=== PATIENT | female | born 1975 | race African-American/Black ===

== ENCOUNTER 2018-01-26 13:09 | Emergency (ER) | payer OTHER ==
[2018-01-26] MEDS ORDERED: NORMAL SALINE 1000 ML 1,000 ML IV ONE ×2 (13:32→14:40)
[2018-01-26] MEDS ORDERED: ONDANSETRON HCL INJ/PF 4 MG/2 ML SDV IV ONE ×2 (13:32→17:37)
[2018-01-26] MEDS ORDERED: KETOROLAC TROMETHAMINE INJ/PF 30 MG/1 ML SDV IV ONE (14:40)
--- NOTE | 2018-01-26 14:54 | ER Document Report ---
ED GI/ - General Chief Complaint: Diarrhea Stated Complaint: VOMITTING Time Seen by Provider: 01/26/18 13:31 Mode of Arrival: Ambulatory Information source: Patient - HPI Patient complains to provider of: Abdominal pain, Diarrhea, Vomiting Onset: Other - months Notes: 01/26/18 14:49 Patient is here with complaints of diarrhea for the last 3 months. She states that every time she eats, she immediately has diarrhea. Over the last few weeks she has also had associated nausea and vomiting. She complains of some generalized abdominal pain. She denies dysuria or hematuria. No vaginal bleeding or vaginal discharge. Prior abdominal surgeries include and laparoscopy. She denies any changes in her diet or any new medications. She denies any recent travel outside the [place]. She denies any known sick contacts. She has not been on antibiotics recently. She denies any blood in her stool. She denies starting any new medications recently. She denies any chest pain or shortness of breath. No other complaints at this time. She states that she saw her primary care doctor and was started on reflux medication. - Related Data Allergies/Adverse Reactions: tuberculin,PPD,multi-puncture Allergy (Verified 01/26/18 13:11) Past Medical History - Social History Smoking Status: Never Smoker Family History: Reviewed & Not Pertinent Patient has suicidal ideation: No Patient has homicidal ideation: No - Past Medical History Cardiac Medical History: Reports: Hx Hypercholesterolemia, Hx Hypertension Renal/ Medical History: Denies: Hx Peritoneal Dialysis Past Surgical History: Reports: Hx Section Review of Systems - Review of Systems -: Yes All other systems reviewed and negative Physical Exam - Vital signs Vitals: Temp Pulse Resp BP Pulse Ox 99.1 F 130 H 14 141/94 H 96 01/26/18 13:13 01/26/18 13:13 01/26/18 13:13 01/26/18 13:13 01/26/18 13:13 - Notes Notes: GENERAL: alert, cooperative, nontoxic, no distress. HEAD: normocephalic, atraumatic EYES: conjunctiva pink without discharge, no external redness or swelling. EARS: no external swelling, no external redness NOSE: atraumatic, no external swelling MOUTH/THROAT: mucous membranes moist and pink, posterior pharynx without erythema, swelling, exudate. No trismus or drooling. NECK: soft, supple, full range of motion, no meningismus. CHEST: no distress, lungs clear and equal throughout. No wheezing, rales, rhonchi. CARDIAC: Mild tachycardia, regular rhythm, no murmur, normal capillary refill, normal pulses. No peripheral edema noted. ABDOMEN: Soft, mild generalized tenderness to palpation. No rebound tenderness or guarding. No mass. Obese abdomen. BACK: full range of motion, no CVA tenderness. EXTREMITIES: full range of motion of all extremities. No redness, no swelling. NEURO: alert and oriented x 3, no focal deficits, full range of motion of all extremities. PYSCH: appropriate mood, affect. Patient is cooperative. SKIN: pink, warm, dry, no rash. Course - Re-evaluation Re-evalutation: 01/26/18 18:12 Patient is nontoxic appearing with stable vitals. She is here with abdominal pain, nausea, vomiting. Diarrhea has been going on for last several months. She has had nausea vomiting for the last few weeks. On exam she has some mild generalized tenderness. Lab work shows an elevated blood glucose of 360 with an elevated lipase. Patient states that she is feeling significantly better after Toradol and Zofran. She was given IV fluids. She was initially tachycardic, this has resolved after her IV fluid boluses. EKG shows no acute findings. CT the abdomen and pelvis with IV contrast shows fatty infiltration of liver with no other significant findings. Patient has been able to tolerate clear fluids orally here in the emergency department. She tells me that she is feeling significant better. I offered admission to the hospital, she declined at this time. I believe this is reasonable as she is resting comfortably and is tolerating oral fluids. She will be discharged home with a prescription for Zofran and Ultram. Due to her chronic diarrhea, had ordered stool cultures here in the emergency department, she was unable to obtain a sample. I will refer her to GI for her chronic abdominal complaints. She is instructed to eat/ drink clear liquids for the next few days and slowly progress her diet. Follow- up with her primary care doctor at the next available appointment due to her elevated blood sugar. This may be secondary to her pancreatitis. Follow-up sooner for worsening pain, high fever, persistent vomiting, blood in her vomit or stool, or for any further concerns. The patient's emergency department workup and current diagnosis were explained to the patient and or family. Follow-up instructions were provided. Medications if prescribed were discussed. Instructions for when to return to the emergency department including specific worrisome symptoms were discussed with the patient and/or family. The patient is noted to have elevated blood pressure during today's emergency department visit. The patient was informed of this finding. The patient was instructed that this may be related to pre-hypertension and requires further evaluation with a primary care provider. The patient has no hypertensive symptoms at this time. - Vital Signs Vital signs: Temp Pulse Resp BP Pulse Ox 99.1 F 130 H 14 141/94 H 96 01/26/18 13:13 01/26/18 13:13 01/26/18 13:13 01/26/18 13:13 01/26/18 13:13 - Laboratory Result Diagrams: 01/26/18 15:21 01/26/18 15:21 Laboratory results interpreted by me: 01/26/18 01/26/18 01/26/18 15:21 15:21 15:21 RDW 14.4 H Sodium 135.2 L Potassium 3.2 L Chloride 97 L Glucose 368 H Albumin 3.2 L Lipase 1926.4 H Urine Glucose (UA) Urine Blood Urine Urobilinogen 01/26/18 15:35 RDW Sodium Potassium Chloride Glucose Albumin Lipase Urine Glucose (UA) >=500 H Urine Blood LARGE H Urine Urobilinogen 2.0 H - Diagnostic Test Radiology reviewed: Image reviewed, Reports reviewed - Fatty infiltration of the liver on CT of the abdomen and pelvis with IV contrast. - EKG Interpretation by [facility] EKG shows normal: Sinus rhythm, Maple, Intervals, QRS Complexes, ST-T Waves Rate: Normal Rhythm: NSR Discharge - Discharge Clinical Impression: Hyperglycemia, Chronic diarrhea Abdominal pain Qualifiers: Abdominal location: generalized Qualified Code(s): R10.84 - Generalized abdominal pain Pancreatitis Qualifiers: Chronicity: acute Pancreatitis type: unspecified pancreatitis type Acute pancreatitis complication: no infection or necrosis Qualified Code(s): K85.90 - Acute pancreatitis without necrosis or infection, unspecified Condition: Stable Disposition: HOME, SELF-CARE Instructions: Abdominal Pain ([facility]), Diarrhea, Nonspecific ([facility]), Pancreatitis ( [facility]), Hyperglycemia ([facility]) Additional Instructions: Take medications as prescribed. Follow-up with your family doctor at the next available appointment regarding your elevated blood sugar as well as your pancreatitis. Eat and drink clear liquids for the next few days and slowly progress her diet. Follow-up with GI at the next available appointment. Follow -up sooner or return for increasing pain, high fever, persistent vomiting, blood in her vomit or stool, high fevers, or for any further concerns. Your blood pressure was elevated during today's visit. Have this rechecked with your doctor. The medication you were prescribed today may cause drowsiness. Do not drive or operate heavy machinery while taking this medication. Prescriptions: Tramadol HCl [Ultram 50 mg Tablet] 50 mg PO Q6HP PRN #12 tablet PRN Reason: Ondansetron HCl [Zofran 4 mg Tablet] 1 - 2 tab PO Q4H PRN #10 tablet PRN Reason: Forms: Elevated Blood Pressure, Smoking Cessation Education, Return to Work Referrals: [facility] [Provider Group] - Follow up as needed KAVITA MCKINNON MD [ACTIVE STAFF] - Follow up as needed
[2018-01-26 15:34] LABS: ABSOLUTE EOSINOPHILS # (AUTO) 0.1 10^3/uL (0.0-0.6); ABSOLUTE LYMPHOCYTES (AUTO) 2.9 10^3/uL (0.5-4.7); ABSOLUTE MONOCYTES (AUTO) 0.4 10^3/uL (0.1-1.4); ABSOLUTE NEUT (AUTO) 5.5 10^3/uL (1.7-8.2); BASOPHILS % (AUTO) 0.5 % (0-2); EOSINOPHILS % (AUTO) 0.6 % (0-6); HEMOGLOBIN 12.1 g/dL (12.0-15.5); LYMPHOCYTES % (AUTO) 32.3 % (13-45); MEAN CORPUSCULAR HEMOGLOBIN 27.4 pg (27.0-33.4); MEAN CORPUSCULAR HGB CONC 33.6 g/dL (32.0-36.0); MEAN CORPUSCULAR VOLUME 82 fl (80-97); MONOCYTES % (AUTO) 4.9 % (3-13); PLATELET COUNT 217 10^3/uL (150-450); RED BLOOD COUNT 4.41 10^6/uL (3.72-5.28); RED CELL DISTRIBUTION WIDTH 14.4 % (11.5-14.0); SEGMENTED NEUTROPHILS % (AUTO) 61.7 % (42-78); TOTAL CELLS COUNTED % (AUTO) 100 %; WHITE BLOOD COUNT 8.9 10^3/uL (4.0-10.5)
[2018-01-26 15:45] LABS: ALANINE AMINOTRANSFERASE 34 U/L (9-52); ALBUMIN 3.2 g/dL (3.5-5.0); ALKALINE PHOSPHATASE 63 U/L (38-126); ANION GAP 9 (5-19); ASPARTATE AMINO TRANSFERASE 27 U/L (14-36); BILIRUBIN,DIRECT 0.4 mg/dL (0.0-0.4); BILIRUBIN,TOTAL 0.4 mg/dL (0.2-1.3); BLOOD UREA NITROGEN 16 mg/dL (7-20); CALCIUM 9.4 mg/dL (8.4-10.2); CARBON DIOXIDE 29 mmol/L (22-30); CHLORIDE 97 mmol/L (98-107); GLUCOSE 368 mg/dL (75-110); POTASSIUM 3.2 mmol/L (3.6-5.0); SODIUM 135.2 mmol/L (137-145); TOTAL PROTEIN 6.3 g/dL (6.3-8.2)
--- NOTE | 2018-01-26 16:03 | EKG REPORT ---
SEVERITY:- BORDERLINE ECG - SINUS RHYTHM LVH BY VOLTAGE : Confirmed by: James Benitez 26-Jan-2018 16:02:42
[2018-01-26 16:14] LABS: APPEARANCE,URINE CLEAR; BILIRUBIN,URINE NEGATIVE (NEGATIVE); COLOR,URINE STRAW; GLUCOSE, URINE >=500 mg/dL (NEGATIVE); KETONES,URINE NEGATIVE (NEGATIVE); LEUKOCYTE ESTERASE,URINE NEGATIVE (NEGATIVE); NITRITE,URINE NEGATIVE (NEGATIVE); PROTEIN,URINE NEGATIVE (NEGATIVE); URINE SPECIFIC GRAVITY 1.016
--- NOTE | 2018-01-26 17:58 | RADIOLOGY REPORT (SQ) ---
EXAM DESCRIPTION: CT ABD/PELVIS WITH IV ONLY COMPLETED DATE/TIME: 01/26/2018 5:18 pm REASON FOR STUDY: abdo pain, generalized for months COMPARISON: None. TECHNIQUE: CT scan of the abdomen and pelvis performed using helical scanning technique with dynamic intravenous contrast injection. No oral contrast. Images reviewed with lung, soft tissue, and bone windows. Reconstructed coronal and sagittal MPR images reviewed. Delayed images for evaluation of the urinary system also acquired. All images stored on PACS. All CT scanners at this facility use dose modulation, iterative reconstruction, and/or weight based d osing when appropriate to reduce radiation dose to as low as reasonably achievable (ALARA). [facility]: Dose Right [facility]: CareDose [facility]: Dose Right [facility]: Teradose 4D [facility]: [employer] CONTRAST TYPE AND DOSE: contrast/concentration: Isovue 370.00 mg/ml; Total Contrast Delivered: 100.0 ml; Total Saline Delivered: 46.0 ml RENAL FUNCTION: None required. The patient is less than 50 years old. RADIATION DOSE: CT Rad equipment meets quality standard of care and radiation dose reduction techniq ues were employed. CTDIvol: 18.1 - 20.4 mGy. DLP: 2115 mGy-cm.. LIMITATIONS: None. FINDINGS: LOWER CHEST: No significant findings. No nodules or infiltrates. LIVER: Normal size. No masses. No dilated ducts. There is heterogeneous density in the liver most c onsistent with areas of fatty infiltration and fatty sparing. Liver appears enlarged. SPLEEN: Normal size. No focal lesions. PANCREAS: No masses. No significant calcifications. No adjacent inflammation or peripancreatic fluid collections. Pancreatic duct not dilated. GALLBLADDER: No identified stones by CT criteria. No inflammatory changes to suggest cholecystitis. ADRENAL GLANDS: No significant masses or asymmetry. RIGHT KIDNEY AND URETER: No solid masses. No significant calcifications. No hydronephrosis or hyd roureter. LEFT KIDNEY AND URETER: No solid masses. No significant calcifications. No hydronephrosis or hydr oureter. AORTA AND VESSELS: No aneurysm. No dissection. Renal arteries, SMA, celiac without stenosis. RETROPERITONEUM: No retroperitoneal adenopathy, hemorrhage or masses. BOWEL AND PERITONEAL CAVITY: No masses or inflammatory changes. No free fluid or peritoneal masses. APPENDIX: Normal. PELVIS: No mass. No free fluid. Normal bladder. Cystic areas are identified in both adnexal regions most consistent with ovarian cysts. Ovoid cystic area is identified at the level of the cervix whic h may represent a nabothian cyst clinically warranted pelvic ultrasound may be of value for further e valuation. ABDOMINAL WALL: No masses. No hernias. BONES: No significant or acute findings. OTHER: No other significant finding. IMPRESSION: Heterogeneous density in the liver most consistent with areas of fatty infiltration and fatty sparing. The liver appears enlarged. Other findings as noted above TECHNICAL DOCUMENTATION: JOB ID: [id number] Quality ID # [id number]: Final reports with documentation of one or more dose reduction techniques (e.g., Au tomated exposure control, adjustment of the mA and/or kV according to patient size, use of iterative reconstruction technique) 2010 [employer]- All Rights Reserved Reading location - IP/workstation name: [email or web address]
[2018-01-26 19:01] VITALS: BP 140/85
== END 2018-01-26 19:01 | disposition home or self-care (01) ==
LOC: ER 13:09
DX: R19.7 Diarrhea, unspecified (principal); K85.90 Acute pancreatitis without necrosis or infection, unspecified; K76.0 Fatty (change of) liver, not elsewhere classified; R73.9 Hyperglycemia, unspecified; R10.84 Generalized abdominal pain; R11.2 Nausea with vomiting, unspecified; I10 Essential (primary) hypertension; R00.0 Tachycardia, unspecified
CPT/HCPCS: 93005; 96376; 99284; 96361; 96374; 96375; 36415; 84702; 83690; 85025; 80053; 81001; 74177; 93010; J1885; J2405; J7030